=== PATIENT | female | born 1960 | race Caucasian/White ===

== ENCOUNTER 2017-04-03 05:38 | Observation (INO) | payer OTHER ==
[2017-04-03 06:38] LABS: #Eosinphils 0.1 thou/uL (0.0-0.7); #Lymphocytes 1.2 thou/uL (1.20-3.40); #Monocytes 0.6 thou/uL (0.11-0.59); #Neutrophils 4.3 thou/uL (1.40-6.50); %Basophils 0.3 % (0.0-1.0); %Eosinophils 1.8 % (0.0-10.0); %Lymphocytes 19.1 % (21.0-51.0); %Monocytes 8.9 % (0.0-10.0); %Neutrophils 69.9 % (42.0-75.0); Hemoglobin 12.1 g/dL (12.0-16.0); Mean Corpuscular HGB CONC 32.8 g/dL (32.0-36.0); Mean Corpuscular Hemoglobin 30.1 pg (27.0-31.0); Mean Corpuscular Volume 91.8 fl (81.0-99.0); Mean Platelet Volume 9.8 fL (7.4-10.4); Platelet Count 124 thou/uL (130-400); RBC Distribution Width 18.6 % (11.5-14.5); Red Blood Cell (RBC) Count 4.02 mill/uL (4.20-5.40); White Blood Cell (WBC) Count 6.2 thou/uL (4.8-10.8)
[2017-04-03] MEDS ORDERED: Midazolam HCl 2 mg/2 ml Vial ONE (06:41)
[2017-04-03] MEDS ORDERED: Fentanyl 100 MCG/2 ML VIAL ONE (06:41)
[2017-04-03 06:46] LABS: INR-International Normal Ratio 3.2; PTT 43.5 SEC (22.9-36.1); Prothrombin Time 33.8 SEC (12.0-14.7)
[2017-04-03 06:50] LABS: Anion Gap 14 mmol/L (10-20); BUN (Urea Nitrogen) 28 mg/dL (9.8-20.1); Calc. Creatinine Clearance 54 mL/min (70-130); Calcium 9.8 mg/dL (7.8-10.44); Carbon Dioxide 28 mmol/L (22-29); Cardiac Risk 2.9 (Less than 4.5); Chloride 98 mmol/L (98-107); Cholesterol 77 mg/dl (< 200 Desired); Estimated GFR-MDRD 45; Glucose 169 mg/dL (70-105); HDL Cholesterol 27 mg/dL (>60 Neg Risk); LDL Cholesterol, Calculated 34 mg/dL; Potassium 3.9 mmol/L (3.5-5.1); Sodium 136 mmol/L (136-145); Triglycerides 81 mg/dL (Less than 150)
[2017-04-03] MEDS ORDERED: CEFAZOLIN/Water 2 GM/20 ML SYRINGE ONE (07:07)
[2017-04-03] MEDS ORDERED: Iopamidol 370 76% 50 ML VIAL FS ONE (07:42)
[2017-04-03] MEDS ORDERED: Propofol 500 MG/50 ML VIAL ONE (07:45)
[2017-04-03] MEDS ORDERED: Lidocaine 1% (PF) 30 ML VIAL ONE (08:15)
[2017-04-03] MEDS ORDERED: Silver Sulfadiazine 1% Cream 50 GM JAR TOP PRN (10:18)
[2017-04-03] MEDS ORDERED: traMADol HCl 50 MG TAB PO PRN (10:18)
[2017-04-03] MEDS ORDERED: Temazepam 15 MG CAP PO PRN (10:18)
[2017-04-03] MEDS ORDERED: Nitroglycerin 0.4 MG TAB (25 Tab Bottle) SL PRN (10:18)
[2017-04-03] MEDS ORDERED: Bisacodyl 10 MG SUPP PR PRN (10:18)
[2017-04-03] MEDS ORDERED: Bisacodyl 5 MG TAB PO PRN (10:18)
[2017-04-03] MEDS ORDERED: Ondansetron PF 4 MG/2 ML Vial IVP PRN (10:18)
[2017-04-03] MEDS ORDERED: Acetaminophen 325 MG TAB PO PRN (10:18)
[2017-04-03] MEDS ORDERED: diphenhydrAMINE 25 MG CAP PO PRN (10:18)
[2017-04-03] MEDS ORDERED: Mag-Al 1200 mg/1200 mg/30 ML UDCUP PO PRN (10:18)
[2017-04-03] MEDS ORDERED: Dextrose 5% in Water 1,000 ML IV PRN (10:19)
[2017-04-03] MEDS ORDERED: Dextrose 50% Abboject 50 ML SYRINGE IVP PRN (10:19)
[2017-04-03 11:59] VITALS: BMI 29.5
[2017-04-03] MEDS ORDERED: PROPOFOL 200 MG/20 ML VIAL ONE (15:07)
[2017-04-03] MEDS ORDERED: ePHEDrine/0.9% NaCl/PF SYRINGE 50 mg/10 ml ONE (15:07)
[2017-04-03] MEDS ORDERED: PHENYLEPHRINE-NS 100 MCG/ML 10 ML SYRINGE ONE (15:07)
--- NOTE | 2017-04-03 17:03 | EKG ---
Test Reason : PREOP Blood Pressure : / mmHG Vent. Rate : 071 BPM Atrial Rate : 099 BPM P-R Int : 000 ms QRS Dur : 156 ms QT Int : 472 ms P-R-T Axes : 000 -04 132 degrees QTc Int : 512 ms Apparent atrial tachycardia with non conduction. Atrial rate 170, avg ventricular rate 80 Left bundle branch block Abnormal ECG No previous ECGs available Confirmed by DR. Sheron STEWART ([id number]) on 04/03/2017 5:03:12 PM Referred By: AKI Confirmed By:DR. Sheron STEWART
[2017-04-03] MEDS: metFORMIN 500 MG TAB PO SCH (17:17)
[2017-04-03] MEDS: Cephalexin 250 MG CAP PO SCH ×2 (17:18→23:07)
[2017-04-03] MEDS: Potassium Chloride 20 MEQ TAB PO SCH (17:18)
--- NOTE | 2017-04-04 08:28 | RAD ---
AP CHEST: Indication: 56-year-old female with history of pacemaker placement. Comparison: None. FINDINGS: There are sternotomy changes and aortic valve prosthesis placement. There is a multi-lead AICD projec ting over the left chest wall. The leads project in the expected position. There is moderate to sever e cardiomegaly with mild pulmonary vascular congestion. No seth airspace edema, pleural effusion, or pneumothorax evident. No acute osseous abnormality is evident. IMPRESSION: 1. AICD placement without evidence of complication. 2. Moderate cardiomegaly and mild pulmonary vascular congestion. 3. Post-surgical changes of prior valvular replacement. POS: [facility]
[2017-04-04 08:50] VITALS: BP 129/57; TEMP 97.4
[2017-04-04] MEDS ORDERED: Bumetanide 1 MG TAB PO SCH (09:00)
[2017-04-04] MEDS ORDERED: Insulin Detemir 100 UNITS/ML 16 UNITS in Pre-Filled Syringe 1 EACH SC SCH (09:00)
[2017-04-04] MEDS ORDERED: Losartan 25 MG TAB PO SCH (09:00)
[2017-04-04] MEDS: metFORMIN 500 MG TAB PO SCH (09:54)
[2017-04-04] MEDS: Cephalexin 250 MG CAP PO SCH (09:54)
[2017-04-04] MEDS: Potassium Chloride 20 MEQ TAB PO SCH (09:56)
--- NOTE | 2017-04-05 06:39 | DIS ---
DATE OF DISCHARGE: 04/04/2017 DISCHARGE DIAGNOSES: 1. Chronic congestive heart failure with cardiomyopathy. 2. Probable valvular replacement, on Coumadin. 3. Left bundle branch block. 4. Status post elective biventricular implantable cardioverter-defibrillator implantation on 04/03/2017 with a Medtronic device. HOSPITAL COURSE: The patient underwent the procedure on 04/03/2017, tolerated the procedure well, remained stable overnight subsequent day. Chest x-ray reveals no pneumothorax. The vital signs blood pressure is 129/57, heart rate 93, respiration 16, temperature 97.4 degrees Fahrenheit. Interrogation of device reveals adequately functioning Medtronic biventricular implantable cardioverter-defibrillator with lead impedance in atrium 418, RA 456 , RV 703. Capture thresholds are adequate, RV 0.375 volts at 0.4 milliseconds, sensing 2.6 mm in the right atrium and 18.4 millivolts in the right ventricle. CONCLUSION: Functioning biventricular implantable cardioverter-defibrillator one day post-implant without complications. PLAN: Home on antibiotics. Resume Coumadin and wound check in 2 weeks. MATHEW
[2017-04-05] MEDS ORDERED: Metoprolol Tartrate 100 MG TAB PO SCH (08:00)
[2017-04-05] MEDS ORDERED: Metolazone 2.5 MG TAB PO SCH (08:30)
== END 2017-04-04 10:22 | disposition home or self-care (01) ==
LOC: CCL 05:38 → 2SW 10:00
PROVIDERS: ADMIT Internal Medicine Cardiovascular Disease; ATTEND Internal Medicine Cardiovascular Disease
PROC: 0JH608Z Insertion of Defibrillator Generator into Chest Subcutaneous Tissue and Fascia, Open Approach (ICD-10-PCS; principal; 2017-04-04)
PROC: 02H63KZ Insertion of Defibrillator Lead into Right Atrium, Percutaneous Approach (ICD-10-PCS; 2017-04-04)
PROC: 02HK3KZ Insertion of Defibrillator Lead into Right Ventricle, Percutaneous Approach (ICD-10-PCS; 2017-04-04)
PROC: 4B02XTZ Measurement of Cardiac Defibrillator, External Approach (ICD-10-PCS; 2017-04-04)
DX: I11.0 Hypertensive heart disease with heart failure (principal); I50.22 Chronic systolic (congestive) heart failure; I48.1 Persistent atrial fibrillation; I44.7 Left bundle-branch block, unspecified; I42.8 Other cardiomyopathies; E11.42 Type 2 diabetes mellitus with diabetic polyneuropathy; K58.9 Irritable bowel syndrome, unspecified; Z79.01 Long term (current) use of anticoagulants; Z79.4 Long term (current) use of insulin; Z79.899 Other long term (current) drug therapy; Z95.4 Presence of other heart-valve replacement
CPT/HCPCS: 33225; 33249; 36005; 36415; 36416; 71045; 75820; 80048; 80061; 85025; 85610; 85730; 93005; 93010; 93641; 93798; 96374; C1777; C1882; C1898; C1900; G0378; J1815; J2001; J2250; J2405; J2704; J3010; J3490

== ENCOUNTER → 2017-05-01 | Day surgery (SDC) | payer OTHER ==
[2017-04-28 14:55] VITALS: BMI 28.9
[~2017-05-01] MED LIST: Diprivan 20 ML ONE; EPINEPHrine 1 MG/10 ML Abboject SYRINGE ONE; EPINEPHrine 1 MG/ML AMP ONE; PHENYLEPHRINE-NS 100 MCG/ML 10 ML SYRINGE ONE; Propofol 200 MG/20 ML VIAL ONE
--- NOTE | 2017-05-01 13:37 | OP ---
DATE OF PROCEDURE: 05/01/2017 PROCEDURE: ICD interrogation and intra cardioversion. PROCEDURE IN DETAIL: Ms. Chappell is a 56-year-old woman with prior history of mechanical mitral valve replacement, recent biventricular ICD implantation, persistent atrial flutter. She is here for a pl anned cardioversion. KIMBERLEE prior to procedure, demonstrated no intracardiac clots. INR today is 3.2, left appendage closure from likely surgical ligation appears to be without any leak, severe left atrial enlargement seen, t misael. The patient received propofol by Anesthesia specialist. After adequate sedation achieved the ICD was interrogated and found to be in adequate order. Then, attempts were made to overdrive pace terminat e the atrial flutter present. Atrial flutter cycle is 270 milliseconds, burst pacing to 160 mi lliseconds to convert the patient into atrial fibrillation from atrial flutter. Eventually this rhyt hm was shocked terminated with a 35 joule internal shock. CONCLUSION: Successful shock termination of atrial flutter/fibrillation. PLAN: 1. Continue anticoagulation. 2. Add atrial ATP. 3. Consider antiarrhythmic regimen if symptomatic atrial fibrillation recurs.
--- NOTE | 2017-05-01 18:31 | ECHO ---
TRANSESOPHAGEAL ECHOCARDIOGRAM: Date: 05/01/17 INDICATION FOR PROCEDURE: Ms. Chappell is a pleasant 56-year-old woman with history of mitral valve disease who underwent a mecha reyna mitral valve replacement in the past. She also received a biventricular ICD recently and she is here for attempted cardioversion. KIMBERLEE is performed to rule out intracardiac clot and to evaluate monique ral valve function. PROCEDURE DETAILS: The patient received propofol per anesthesia specialist. After adequate sedation achieved, a standar d transesophageal echocardiogram probe was passed into the esophagus without difficulty. Patient yvonne erated the procedure well. No complication noted. RESULTS: Left atrium is severely enlarged. Horizontal diameter is about 6.6 cm or slightly more. The appendage is not found, but signs of surgical ligation is visualized. No leak through the surgical ligation is seen. Mitral valve has a mechanical valve in place which appears to have adequate seating. Opening i s also adequate. Physiologic trivial MR is seen. The transmitral velocities are difficult to evaluate due to shadowing. The left atrium has heavy spontaneous echo contrast throughout it. The left ventri cular systolic function was difficult to visualize due to shadowing, but appears to be depressed, lik [place] to moderate degree. Right chambers slightly dilated. Right atrium is nondilated. Only mild tricus pid regurgitation seen. Aortic valve has 3 leaflets, sclerotic, but not stenotic, and not regurgitant . The Pulmonary valve is not well visualized. Pericardial space free of effusion. Visualized portion the ascending and descending aorta are without aneurysm, dissection, or atheroma. CONCLUSION: 1. No intracardiac clots. 2. Evidence of likely surgical closure of left appendage is seen, which appears to be without any re sidual flow. 3. Heavy spontaneous echo contrast in severely enlarged left atrium is visualized. 4. Adequate functioning and seated mechanical mitral valve. 5. Likely reduced LV function, difficult to estimate due to overshadowing of mechanical valve. PLAN: Proceed with the cardioversion.
--- NOTE | 2017-05-01 21:31 | EKG ---
Test Reason : PREOP Blood Pressure : / mmHG Vent. Rate : 076 BPM Atrial Rate : 077 BPM P-R Int : 000 ms QRS Dur : 166 ms QT Int : 498 ms P-R-T Axes : 100 -43 086 degrees QTc Int : 560 ms Electronic ventricular pacemaker When compared with ECG of 03-APR-2017 06:33, Previous ECG has undetermined rhythm, needs review Confirmed by Ce YUSUF ([id number]) on 05/01/2017 9:31:02 PM Referred By: [facility] Confirmed By:Ce YUSUF
== END ==
LOC: SDC 06:48
PROVIDERS: ATTEND Internal Medicine Cardiovascular Disease
PROC: 5A2204Z Restoration of Cardiac Rhythm, Single (ICD-10-PCS; principal; 2017-05-01)
DX: I48.1 Persistent atrial fibrillation (principal); I11.0 Hypertensive heart disease with heart failure; I50.22 Chronic systolic (congestive) heart failure; I42.8 Other cardiomyopathies; E11.42 Type 2 diabetes mellitus with diabetic polyneuropathy; K58.9 Irritable bowel syndrome, unspecified; Z79.01 Long term (current) use of anticoagulants; Z79.84 Long term (current) use of oral hypoglycemic drugs; Z79.899 Other long term (current) drug therapy; Z95.810 Presence of automatic (implantable) cardiac defibrillator
CPT/HCPCS: 92960; 93005; 93010; 93312; J0171; J2704

== ENCOUNTER 2021-10-04 07:24 | Outpatient (CLI) | payer OTHER ==
[2021-10-04 10:50] LABS: #Eosinphils 0.2 10x3/uL (0.0-0.5); #Monocytes 0.5 10x3/uL (0.0-1.1); #Neutrophils 2.8 10x3/uL (1.5-8.4); %Basophils 0.9 % (0.0-2.0); %Eosinophils 4.2 % (0.0-6.0); %Lymphocytes 22.6 % (18.0-47.0); %Neutrophils 61.1 % (40.0-75.0); Hemoglobin 13.6 g/dL (12.0-15.5); Mean Corpuscular HGB CONC 33.7 g/dL (32.0-36.0); Mean Corpuscular Volume 95.1 fl (81.6-98.3); Mean Platelet Volume 11.7 fl (7.4-10.4); Platelet Count 108 10x3/uL (150-450); RBC Distribution Width 13.7 % (11.5-14.5); Red Blood Cell (RBC) Count 4.25 10x6/uL (3.90-5.03); White Blood Cell (WBC) Count 4.6 10x3/uL (3.5-10.5)
[2021-10-04 11:03] LABS: ALT (SGPT) 20 U/L (8-55); AST (SGOT) 30 U/L (5-34); Albumin 4.1 g/dL (3.5-5.0); Alkaline Phosphatase 174 U/L (40-110); Anion Gap 13 mmol/L (10-20); BUN (Urea Nitrogen) 46 mg/dL (9.8-20.1); Bilirubin, Total 1.2 mg/dL (0.2-1.2); Calc. Creatinine Clearance 0 mL/min (70-130); Carbon Dioxide 29 mmol/L (22-29); Chloride 103 mmol/L (98-107); Estimated GFR 41; Globulin 3.1 g/dL (2.4-3.5); Glucose 126 mg/dL (70-105); PTT 30.7 sec (22.0-33.0); Potassium 4.2 mmol/L (3.5-5.1); Protein, Total 7.2 g/dL (6.0-8.3); Sodium 141 mmol/L (136-145)
== END 2021-10-04 07:25 | disposition home or self-care (01) ==
LOC: LABBT 07:24
PROVIDERS: ATTEND Internal Medicine Cardiovascular Disease
DX: Z01.812 Encounter for preprocedural laboratory examination (principal); Z20.822 Contact with and (suspected) exposure to COVID-19
CPT/HCPCS: 80053; 85025; 85610; 85730; 87811

== ENCOUNTER 2021-10-05 05:39 | Inpatient (IN) | payer OTHER ==
[2021-10-05 09:22] LABS: Anion Gap 16 mmol/L (10-20); BUN (Urea Nitrogen) 46 mg/dL (9.8-20.1); Calc. Creatinine Clearance 52 mL/min (70-130); Calcium 8.7 mg/dL (7.8-10.44); Carbon Dioxide 25 mmol/L (22-29); Chloride 102 mmol/L (98-107); Estimated GFR 43; Glucose 94 mg/dL (70-105); Potassium 4.7 mmol/L (3.5-5.1); Sodium 138 mmol/L (136-145)
[2021-10-05 10:12] LABS: INR-International Normal Ratio 1.9; PTT 35.5 sec (22.9-36.1); Prothrombin Time 22.4 sec (12.0-14.7)
[2021-10-05] MEDS ORDERED: Fentanyl 100 MCG/2 ML VIAL ONE (10:31)
[2021-10-05] MEDS ORDERED: Midazolam HCl 2 mg/2 ml Vial ONE (10:32)
[2021-10-05] MEDS ORDERED: Heparin 10,000 UNITS/ 10 ML VIAL ONE (10:32)
[2021-10-05] MEDS ORDERED: Verapamil 5 MG/2 ML VIAL ONE (10:40)
[2021-10-05] MEDS ORDERED: Nitroglycerin 100MG/250ML BOT 250 ML ONE (10:40)
[2021-10-05] MEDS ORDERED: Iopamidol 370 76% 100 ML VIAL ONE (13:49)
[2021-10-05 16:31] VITALS: BMI 35.9
[2021-10-05] MEDS ORDERED: Sodium Chloride 0.9% 1,000 ML IV SCH (17:15)
[2021-10-05] MEDS ORDERED: Acetaminophen/Codeine 30-300mg Tablet PO PRN ×2 (17:15)
[2021-10-05] MEDS ORDERED: Nitroglycerin 0.4 MG TAB (25 Tab Bottle) SL PRN (17:15)
[2021-10-05] MEDS ORDERED: traMADol HCl 50 MG TAB PO PRN (17:15)
[2021-10-05] MEDS: Warfarin Sodium 2.5 MG TAB PO SCH (17:38)
[2021-10-05] MEDS ORDERED: Furosemide 20 MG TAB PO SCH (18:45)
[2021-10-05] MEDS ORDERED: Furosemide 20 MG/2 ML VIAL SLOW IVP SCH (18:45)
[2021-10-05] MEDS ORDERED: Heparin 25,000 units/D5W 500 ML IV SCH (18:45)
[2021-10-05] MEDS ORDERED: Heparin 10,000 UNITS/ 10 ML VIAL SLOW IVP SCH (18:45)
[2021-10-05 18:54] LABS: Hemoglobin 12.8 g/dL (12.0-16.0); Platelet Count 84 thou/uL (130-400)
[2021-10-05] MEDS: Metoprolol Tartrate 100 MG TAB PO SCH (19:57)
[2021-10-06 02:53] LABS: INR-International Normal Ratio 2.9; Prothrombin Time 30.9 sec (12.0-14.7)
[2021-10-06 03:13] LABS: PTT Greater than 250.0 sec (22.9-36.1)
[2021-10-06 06:18] LABS: PTT 132.7 sec (22.9-36.1)
[2021-10-06] MEDS ORDERED: Metolazone 2.5 MG TAB PO SCH (08:30)
[2021-10-06] MEDS ORDERED: VIT C PO SCH (09:00)
[2021-10-06] MEDS ORDERED: NPH, Human Insulin Isophane 300 UNIT/3 ML VIAL SC SCH (09:00)
[2021-10-06] MEDS ORDERED: Losartan 25 MG TAB PO SCH (09:00)
[2021-10-06] MEDS ORDERED: Potassium Chloride 20 MEQ TAB PO SCH (09:00)
[2021-10-06] MEDS ORDERED: Ferrous Sulfate 325 MG TAB PO SCH (09:00)
[2021-10-06] MEDS ORDERED: Cholecalciferol 1,000 UNITS (25 MCG) TAB PO SCH (09:00)
[2021-10-06] MEDS ORDERED: Bumetanide 1 MG TAB PO SCH (09:00)
[2021-10-06] MEDS ORDERED: [UNRECOGNIZED DRUG - OTHER] PO SCH (09:00)
[2021-10-06] MEDS: Metoprolol Tartrate 100 MG TAB PO SCH ×2 (09:01→19:42)
[2021-10-06 10:55] LABS: SARS-CoV-2 NAA Rapid Test Not Detected (NotDetected)
[2021-10-06 12:19] LABS: Anion Gap 17 mmol/L (10-20); BUN (Urea Nitrogen) 39 mg/dL (9.8-20.1); Calc. Creatinine Clearance 59 mL/min (70-130); Carbon Dioxide 18 mmol/L (22-29); Chloride 104 mmol/L (98-107); Estimated GFR 48; Glucose 242 mg/dL (70-105); Potassium 5.1 mmol/L (3.5-5.1); Sodium 134 mmol/L (136-145)
[2021-10-06] MEDS: Warfarin Sodium 2.5 MG TAB PO SCH (17:04)
[2021-10-06 19:23] VITALS: BP 120/56; TEMP 98.4
== END 2021-10-06 21:04 | disposition short-term general hospital (02) | DRG 287 ==
LOC: SDC 05:39 → 2SW 16:18 → OBSVTOIN 10-06 10:22
PROVIDERS: ADMIT Internal Medicine Cardiovascular Disease; ATTEND Internal Medicine Cardiovascular Disease
PROC: 4A023N6 Measurement of Cardiac Sampling and Pressure, Right Heart, Percutaneous Approach (ICD-10-PCS; principal; 2021-10-05)
PROC: B2111ZZ Fluoroscopy of Multiple Coronary Arteries using Low Osmolar Contrast (ICD-10-PCS; 2021-10-05)
PROC: B2151ZZ Fluoroscopy of Left Heart using Low Osmolar Contrast (ICD-10-PCS; 2021-10-05)
DX: I35.0 Nonrheumatic aortic (valve) stenosis (principal); I42.9 Cardiomyopathy, unspecified; I50.22 Chronic systolic (congestive) heart failure; I48.19 Other persistent atrial fibrillation; I27.20 Pulmonary hypertension, unspecified; E11.9 Type 2 diabetes mellitus without complications; E78.5 Hyperlipidemia, unspecified; D64.9 Anemia, unspecified; I44.7 Left bundle-branch block, unspecified; I11.0 Hypertensive heart disease with heart failure; Z98.890 Other specified postprocedural states; Z95.810 Presence of automatic (implantable) cardiac defibrillator; Z79.899 Other long term (current) drug therapy; Z79.01 Long term (current) use of anticoagulants; Z95.2 Presence of prosthetic heart valve; Z79.84 Long term (current) use of oral hypoglycemic drugs; Z20.822 Contact with and (suspected) exposure to COVID-19
CPT/HCPCS: 36415; 36416; 80048; 85014; 85018; 85049; 85610; 85730; 93460; 96365; 96366; 96375; 96376; C1751; C1769; C1894; G0378; J1644; J1815; J1940; J2250; J3010; J7050; Q9967; U0002

== ENCOUNTER 2021-11-12 18:08 | Inpatient (IN) | payer OTHER, SELFPAY ==
[2021-11-12] MEDS ORDERED: Morphine 2 MG/ML VIAL SLOW IVP PRN (21:51)
[2021-11-12] MEDS ORDERED: Morphine 4 MG/ML VIAL SLOW IVP PRN (22:15)
[2021-11-12] MEDS ORDERED: Dextrose 5% in Water 1,000 ML IV PRN (22:16)
[2021-11-12] MEDS ORDERED: Dextrose 50% Abboject 50 ML SYRINGE SLOW IVP PRN (22:16)
[2021-11-12 23:10] LABS: #Eosinphils 0.2 thou/uL (0.0-0.7); #Lymphocytes 0.9 thou/uL (1.20-3.40); #Monocytes 0.7 thou/uL (0.11-0.59); #Neutrophils 4.9 thou/uL (1.40-6.50); %Basophils 0.1 % (0.0-1.0); %Lymphocytes 13.8 % (21.0-51.0); %Monocytes 10.9 % (0.0-10.0); %Neutrophils 72.2 % (42.0-75.0); Hemoglobin 9.4 g/dL (12.0-16.0); Mean Corpuscular HGB CONC 34.4 g/dL (32.0-36.0); Mean Corpuscular Hemoglobin 33.3 pg (27.0-31.0); Mean Corpuscular Volume 96.8 fL (78.0-98.0); Mean Platelet Volume 8.3 fL (7.4-10.4); Platelet Count 136 thou/uL (130-400); RBC Distribution Width 15.4 % (11.5-14.5); Red Blood Cell (RBC) Count 2.83 mill/uL (4.20-5.40); White Blood Cell (WBC) Count 6.8 thou/uL (4.8-10.8)
[2021-11-12 23:19] VITALS: BMI 28.0
[2021-11-12 23:25] LABS: Anion Gap 16 mmol/L (10-20); BUN (Urea Nitrogen) 77 mg/dL (9.8-20.1); Calc. Creatinine Clearance 21 mL/min (70-130); Calcium 9.1 mg/dL (7.8-10.44); Carbon Dioxide 25 mmol/L (22-29); Chloride 89 mmol/L (98-107); Estimated GFR 18; Glucose 308 mg/dL (70-105); Potassium 5.4 mmol/L (3.5-5.1); Sodium 125 mmol/L (136-145)
[2021-11-12 23:29] LABS: INR-International Normal Ratio 1.4; Prothrombin Time 17.1 sec (12.0-14.7)
[2021-11-12 23:30] LABS: PTT 33.2 sec (22.9-36.1)
[2021-11-13] MEDS: HumaLOG 300 UNITS/3 ML VIAL SC PRN ×4 (06:20→21:10)
[2021-11-13 07:32] LABS: Anion Gap 15 mmol/L (10-20); BUN (Urea Nitrogen) 75 mg/dL (9.8-20.1); Calc. Creatinine Clearance 22 mL/min (70-130); Calcium 9.1 mg/dL (7.8-10.44); Carbon Dioxide 26 mmol/L (22-29); Chloride 90 mmol/L (98-107); Estimated GFR 19; Glucose 316 mg/dL (70-105); Potassium 5.1 mmol/L (3.5-5.1); Sodium 126 mmol/L (136-145)
[2021-11-13 07:33] LABS: #Eosinphils 0.2 thou/uL (0.0-0.7); #Lymphocytes 0.9 thou/uL (1.20-3.40); #Monocytes 0.9 thou/uL (0.11-0.59); #Neutrophils 4.3 thou/uL (1.40-6.50); %Basophils 0.1 % (0.0-1.0); %Eosinophils 3.2 % (0.0-10.0); %Lymphocytes 14.8 % (21.0-51.0); %Monocytes 13.7 % (0.0-10.0); %Neutrophils 68.2 % (42.0-75.0); Hemoglobin 8.9 g/dL (12.0-16.0); Mean Corpuscular HGB CONC 33.8 g/dL (32.0-36.0); Mean Corpuscular Hemoglobin 32.7 pg (27.0-31.0); Mean Corpuscular Volume 96.8 fL (78.0-98.0); Mean Platelet Volume 8.4 fL (7.4-10.4); Platelet Count 124 thou/uL (130-400); RBC Distribution Width 15.8 % (11.5-14.5); Red Blood Cell (RBC) Count 2.71 mill/uL (4.20-5.40); White Blood Cell (WBC) Count 6.2 thou/uL (4.8-10.8)
[2021-11-13] MEDS ORDERED: Insulin NPH Human Isophane 100 UNIT/ML (10 ML VIAL) SQ SCH ×2 (08:15→09:00)
[2021-11-13 08:24] LABS: Phosphorus 3.7 mg/dL (2.3-4.7)
[2021-11-13] MEDS: Metoprolol Tartrate 100 MG TAB PO SCH ×2 (08:53→21:06)
[2021-11-13] MEDS: Amiodarone 200 MG TAB PO SCH ×2 (09:48→21:09)
[2021-11-13 11:10] LABS: INR-International Normal Ratio 1.3; Prothrombin Time 16.8 sec (12.0-14.7)
[2021-11-13 11:11] LABS: PTT 34.8 sec (22.9-36.1)
[2021-11-13 11:21] LABS: Iron 80 ug/dL (50-170); Iron Binding Capacity, Total 351 mcg/dL (265-497)
[2021-11-13] MEDS: Sodium Chloride 0.9% 1,000 ML IV SCH (12:22)
[2021-11-13 16:45] LABS: Anion Gap 17 mmol/L (10-20); BUN (Urea Nitrogen) 67 mg/dL (9.8-20.1); Calc. Creatinine Clearance 25 mL/min (70-130); Calcium 9.2 mg/dL (7.8-10.44); Carbon Dioxide 25 mmol/L (22-29); Chloride 93 mmol/L (98-107); Estimated GFR 22; Glucose 254 mg/dL (70-105); Potassium 4.7 mmol/L (3.5-5.1); Sodium 130 mmol/L (136-145)
[2021-11-13] MEDS: Insulin NPH Human Isophane 100 UNIT/ML (10 ML VIAL) SQ SCH (16:55)
[2021-11-13] MEDS ORDERED: Warfarin Sodium 5 MG TAB PO SCH (17:00)
[2021-11-13] MEDS ORDERED: Warfarin Sodium 2.5 MG TAB PO SCH (17:00)
[2021-11-13] MEDS: Acetaminophen 325 MG TAB PO PRN (21:16)
[2021-11-13 23:15] LABS: Bacteria/HPF None Seen HPF (None Seen); Bilirubin Negative (Negative); Blood, Urine Negative (Negative); Clarity Clear (Clear); Glucose, Urine (Dipstick) Normal (Negative); Ketone, Urine Negative (Negative); Leukocyte 75 Leu/uL (Negative); Nitrite Negative (Negative); Protein, Urine (Dipstick) Negative (Neg-Trace); RBC/HPF 0-3 HPF (0-3); Specific Gravity, Urine 1.012 (1.002-1.036); WBC/HPF 0-3 HPF (0-3); pH, Urine 5.5 (5.0-9.0)
[2021-11-14 08:57] LABS: #Eosinphils 0.2 thou/uL (0.0-0.7); #Lymphocytes 0.8 thou/uL (1.20-3.40); #Monocytes 0.7 thou/uL (0.11-0.59); #Neutrophils 3.7 thou/uL (1.40-6.50); %Basophils 0.1 % (0.0-1.0); %Eosinophils 4.1 % (0.0-10.0); %Lymphocytes 14.9 % (21.0-51.0); %Monocytes 13.1 % (0.0-10.0); %Neutrophils 67.7 % (42.0-75.0); Hemoglobin 8.6 g/dL (12.0-16.0); Mean Corpuscular HGB CONC 33.7 g/dL (32.0-36.0); Mean Corpuscular Hemoglobin 32.9 pg (27.0-31.0); Mean Corpuscular Volume 97.7 fL (78.0-98.0); Platelet Count 137 thou/uL (130-400); RBC Distribution Width 15.7 % (11.5-14.5); Red Blood Cell (RBC) Count 2.62 mill/uL (4.20-5.40); White Blood Cell (WBC) Count 5.5 thou/uL (4.8-10.8)
[2021-11-14 09:06] LABS: INR-International Normal Ratio 1.5
[2021-11-14 09:09] LABS: Anion Gap 15 mmol/L (10-20); BUN (Urea Nitrogen) 62 mg/dL (9.8-20.1); Calc. Creatinine Clearance 30 mL/min (70-130); Calcium 8.8 mg/dL (7.8-10.44); Carbon Dioxide 23 mmol/L (22-29); Chloride 99 mmol/L (98-107); Estimated GFR 25; Glucose 248 mg/dL (70-105); Potassium 4.5 mmol/L (3.5-5.1); Sodium 132 mmol/L (136-145)
[2021-11-14] MEDS: Insulin NPH Human Isophane 100 UNIT/ML (10 ML VIAL) SQ SCH ×2 (09:10→17:10)
[2021-11-14] MEDS: Amiodarone 200 MG TAB PO SCH ×2 (09:12→21:01)
[2021-11-14] MEDS ORDERED: HYDROcodone/Acetaminophen 5/325 mg Tablet PO PRN (09:25)
[2021-11-14] MEDS ORDERED: HYDROcodone/Acetaminophen 10/325 mg Tablet PO PRN (09:25)
[2021-11-14] MEDS ORDERED: Morphine 4 MG/ML VIAL SLOW IVP PRN (09:25)
[2021-11-14] MEDS: Metoprolol Tartrate 100 MG TAB PO SCH (09:47)
[2021-11-14] MEDS ORDERED: Insulin NPH Human Isophane 100 UNIT/ML (10 ML VIAL) SC SCH (10:00)
[2021-11-14] MEDS: Sodium Chloride 0.9% 1,000 ML IV SCH (10:19)
[2021-11-14] MEDS: HumaLOG 300 UNITS/3 ML VIAL SC PRN ×3 (13:35→21:03)
[2021-11-14] MEDS ORDERED: Warfarin Sodium 2.5 MG TAB PO SCH (17:00)
[2021-11-14] MEDS ORDERED: Warfarin Sodium 5 MG TAB PO SCH (17:00)
[2021-11-14] MEDS: Epoetin (ESRD) 10,000 UNITS/ML VIAL IVP SCH (17:15)
[2021-11-14] MEDS: Acetaminophen 325 MG TAB PO PRN (21:01)
[2021-11-14 21:25] LABS: Hemoglobin 8.8 g/dL (12.0-16.0); Platelet Count 134 thou/uL (130-400)
[2021-11-15] MEDS ORDERED: Guaifenesin DM 100-10/5 ML UDCUP PO PRN (02:10)
[2021-11-15] MEDS: Sodium Chloride 0.9% 1,000 ML IV SCH ×2 (02:31→20:42)
[2021-11-15 06:20] LABS: #Eosinphils 0.3 thou/uL (0.0-0.7); #Lymphocytes 0.9 thou/uL (1.20-3.40); #Monocytes 0.7 thou/uL (0.11-0.59); #Neutrophils 4.2 thou/uL (1.40-6.50); %Basophils 0.2 % (0.0-1.0); %Eosinophils 4.8 % (0.0-10.0); %Lymphocytes 14.8 % (21.0-51.0); %Neutrophils 69.2 % (42.0-75.0); Hemoglobin 8.6 g/dL (12.0-16.0); Mean Corpuscular HGB CONC 34.2 g/dL (32.0-36.0); Mean Corpuscular Hemoglobin 33.8 pg (27.0-31.0); Mean Corpuscular Volume 99.1 fL (78.0-98.0); Mean Platelet Volume 7.5 fL (7.4-10.4); Platelet Count 127 thou/uL (130-400); RBC Distribution Width 15.7 % (11.5-14.5); Red Blood Cell (RBC) Count 2.55 mill/uL (4.20-5.40)
[2021-11-15 06:43] LABS: INR-International Normal Ratio 2.5; Prothrombin Time 27.9 sec (12.0-14.7)
[2021-11-15 06:44] LABS: PTT 46.7 sec (22.9-36.1)
[2021-11-15 06:50] LABS: Anion Gap 12 mmol/L (10-20); BUN (Urea Nitrogen) 42 mg/dL (9.8-20.1); Calc. Creatinine Clearance 40 mL/min (70-130); Calcium 8.8 mg/dL (7.8-10.44); Carbon Dioxide 24 mmol/L (22-29); Chloride 105 mmol/L (98-107); Estimated GFR 36; Glucose 145 mg/dL (70-105); Potassium 4.3 mmol/L (3.5-5.1); Sodium 137 mmol/L (136-145)
[2021-11-15] MEDS ORDERED: Ondansetron PF 4 MG/2 ML Vial IVP PRN (08:55)
[2021-11-15] MEDS ORDERED: diphenhydrAMINE 25 MG CAP PO PRN (08:55)
[2021-11-15] MEDS ORDERED: Calcium Carbonate 500 MG ChewTAB PO PRN (08:55)
[2021-11-15] MEDS ORDERED: Ondansetron ODT 4 MG TAB PO PRN (08:55)
[2021-11-15] MEDS ORDERED: Benzonatate 100 MG CAP PO PRN (08:55)
[2021-11-15] MEDS ORDERED: hydrALAZINE 20 MG/ML VIAL SLOW IVP PRN (08:55)
[2021-11-15] MEDS ORDERED: Sodium Chloride 0.65% Nasal 44 ML BOT EA NARE PRN (08:55)
[2021-11-15] MEDS ORDERED: Labetalol HCl 100 MG/20 ML VIAL SLOW IVP PRN (08:55)
[2021-11-15] MEDS ORDERED: Moisturizing Cream (Eucerin) 113 GM JAR TOP PRN (08:55)
[2021-11-15] MEDS ORDERED: Loperamide HCl 2 MG CAP PO PRN ×2 (08:55)
[2021-11-15] MEDS ORDERED: Artificial Tear Sol 15 ML BOT EA EYE PRN (08:55)
[2021-11-15] MEDS ORDERED: Bisacodyl 10 MG SUPP PR PRN (08:55)
[2021-11-15] MEDS: Insulin NPH Human Isophane 100 UNIT/ML (10 ML VIAL) SQ SCH ×2 (10:04→17:48)
[2021-11-15] MEDS: Amiodarone 200 MG TAB PO SCH ×2 (10:04→20:43)
[2021-11-15] MEDS: Polyethylene Glycol 3350 17 GM Packet PO SCH (10:05)
[2021-11-15] MEDS: HumaLOG 300 UNITS/3 ML VIAL SC PRN ×2 (13:32→23:45)
[2021-11-15] MEDS: Acetaminophen 500 MG TAB PO PRN (13:37)
[2021-11-15] MEDS ORDERED: Warfarin Sodium 2.5 MG TAB PO SCH (17:00)
[2021-11-15] MEDS ORDERED: Warfarin Sodium 1.25 MG HALF.TAB PO SCH (17:00)
[2021-11-16 06:45] LABS: #Eosinphils 0.3 thou/uL (0.0-0.7); #Monocytes 0.7 thou/uL (0.11-0.59); #Neutrophils 4.7 thou/uL (1.40-6.50); %Basophils 0.4 % (0.0-1.0); %Eosinophils 4.5 % (0.0-10.0); %Lymphocytes 14.5 % (21.0-51.0); %Monocytes 10.8 % (0.0-10.0); %Neutrophils 69.8 % (42.0-75.0); Hemoglobin 8.4 g/dL (12.0-16.0); Mean Corpuscular Hemoglobin 32.9 pg (27.0-31.0); Mean Corpuscular Volume 99.9 fL (78.0-98.0); Mean Platelet Volume 7.8 fL (7.4-10.4); Platelet Count 134 thou/uL (130-400); RBC Distribution Width 16.1 % (11.5-14.5); Red Blood Cell (RBC) Count 2.54 mill/uL (4.20-5.40); White Blood Cell (WBC) Count 6.8 thou/uL (4.8-10.8)
[2021-11-16 06:53] LABS: PTT 51.7 sec (22.9-36.1); Prothrombin Time 43.6 sec (12.0-14.7)
[2021-11-16 06:55] LABS: INR-International Normal Ratio 4.5
[2021-11-16 07:02] LABS: Anion Gap 13 mmol/L (10-20); BUN (Urea Nitrogen) 25 mg/dL (9.8-20.1); Calc. Creatinine Clearance 51 mL/min (70-130); Calcium 8.9 mg/dL (7.8-10.44); Carbon Dioxide 22 mmol/L (22-29); Chloride 106 mmol/L (98-107); Estimated GFR 48; Glucose 140 mg/dL (70-105); Potassium 4.2 mmol/L (3.5-5.1); Sodium 137 mmol/L (136-145)
[2021-11-16] MEDS: Amiodarone 200 MG TAB PO SCH ×2 (09:04→20:32)
[2021-11-16] MEDS: Insulin NPH Human Isophane 100 UNIT/ML (10 ML VIAL) SQ SCH ×2 (09:04→15:51)
[2021-11-16] MEDS: Polyethylene Glycol 3350 17 GM Packet PO SCH (09:05)
[2021-11-16] MEDS ORDERED: Iopamidol 370 76% 50 ML VIAL FS ONE (13:35)
[2021-11-16] MEDS: Sodium Chloride 0.9% 1,000 ML IV SCH (20:32)
[2021-11-16] MEDS: HumaLOG 300 UNITS/3 ML VIAL SC PRN (20:33)
[2021-11-17 06:34] LABS: #Eosinphils 0.2 thou/uL (0.0-0.7); #Lymphocytes 0.8 thou/uL (1.20-3.40); #Monocytes 0.5 thou/uL (0.11-0.59); #Neutrophils 3.6 thou/uL (1.40-6.50); %Basophils 0.3 % (0.0-1.0); %Eosinophils 4.1 % (0.0-10.0); %Lymphocytes 16.2 % (21.0-51.0); %Monocytes 9.9 % (0.0-10.0); %Neutrophils 69.4 % (42.0-75.0); Mean Corpuscular HGB CONC 33.5 g/dL (32.0-36.0); Mean Corpuscular Hemoglobin 33.3 pg (27.0-31.0); Mean Corpuscular Volume 99.3 fL (78.0-98.0); Mean Platelet Volume 7.9 fL (7.4-10.4); Platelet Count 129 thou/uL (130-400); RBC Distribution Width 16.1 % (11.5-14.5); Red Blood Cell (RBC) Count 2.41 mill/uL (4.20-5.40); White Blood Cell (WBC) Count 5.2 thou/uL (4.8-10.8)
[2021-11-17 06:45] LABS: Prothrombin Time 45.2 sec (12.0-14.7)
[2021-11-17 06:53] LABS: Anion Gap 12 mmol/L (10-20); BUN (Urea Nitrogen) 20 mg/dL (9.8-20.1); Calc. Creatinine Clearance 47 mL/min (70-130); Calcium 8.7 mg/dL (7.8-10.44); Carbon Dioxide 22 mmol/L (22-29); Chloride 106 mmol/L (98-107); Estimated GFR 43; Glucose 93 mg/dL (70-105); Potassium 4.2 mmol/L (3.5-5.1); Sodium 136 mmol/L (136-145)
[2021-11-17 07:01] LABS: INR-International Normal Ratio 4.7
[2021-11-17] MEDS: Insulin NPH Human Isophane 100 UNIT/ML (10 ML VIAL) SQ SCH ×2 (09:15→16:39)
[2021-11-17] MEDS: Amiodarone 200 MG TAB PO SCH ×2 (09:15→20:44)
[2021-11-17] MEDS: Polyethylene Glycol 3350 17 GM Packet PO SCH (09:15)
[2021-11-17] MEDS: Sodium Chloride 0.9% 1,000 ML IV SCH ×2 (15:45→16:41)
[2021-11-17] MEDS ORDERED: Warfarin Sodium 1.25 MG HALF.TAB PO SCH (17:00)
[2021-11-17] MEDS: HumaLOG 300 UNITS/3 ML VIAL SC PRN (20:46)
[2021-11-18 06:54] LABS: INR-International Normal Ratio 3.5; Prothrombin Time 35.8 sec (12.0-14.7)
[2021-11-18 06:55] LABS: PTT 57.5 sec (22.9-36.1)
[2021-11-18 07:21] LABS: ALT (SGPT) 11 U/L (8-55); AST (SGOT) 19 U/L (5-34); Albumin 3.5 g/dL (3.5-5.0); Alkaline Phosphatase 133 U/L (40-110); Anion Gap 10 mmol/L (10-20); BUN (Urea Nitrogen) 20 mg/dL (9.8-20.1); Bilirubin, Total 2.5 mg/dL (0.2-1.2); Calc. Creatinine Clearance 50 mL/min (70-130); Calcium 8.5 mg/dL (7.8-10.44); Carbon Dioxide 23 mmol/L (22-29); Chloride 107 mmol/L (98-107); Estimated GFR 46; Globulin 2.9 g/dL (2.4-3.5); Glucose 159 mg/dL (70-105); Magnesium 2.1 mg/dL (1.6-2.6); Phosphorus 3.3 mg/dL (2.3-4.7); Potassium 4.3 mmol/L (3.5-5.1); Protein, Total 6.4 g/dL (6.0-8.3); Sodium 136 mmol/L (136-145)
[2021-11-18 07:35] LABS: #Eosinphils 0.2 thou/uL (0.0-0.7); #Lymphocytes 0.6 thou/uL (1.20-3.40); #Monocytes 0.4 thou/uL (0.11-0.59); #Neutrophils 3.1 thou/uL (1.40-6.50); %Basophils 0.2 % (0.0-1.0); %Eosinophils 4.5 % (0.0-10.0); %Lymphocytes 14.2 % (21.0-51.0); %Monocytes 9.5 % (0.0-10.0); %Neutrophils 71.6 % (42.0-75.0); Hemoglobin 7.8 g/dL (12.0-16.0); Hypochromia SLIGHT = 6-15 cells (100X) (0-5/hpf); MDiff Complete? YES; Mean Corpuscular HGB CONC 31.8 g/dL (32.0-36.0); Mean Corpuscular Hemoglobin 32.2 pg (27.0-31.0); Mean Platelet Volume 7.5 fL (7.4-10.4); Platelet Count 108 thou/uL (130-400); Platelet Morphology Comment Appears Decreased; Polychromasia SLIGHT = 2-3 cells (100X) (0-2/hpf); RBC Distribution Width 16.6 % (11.5-14.5); Red Blood Cell (RBC) Count 2.41 mill/uL (4.20-5.40); White Blood Cell (WBC) Count 4.3 thou/uL (4.8-10.8)
[2021-11-18] MEDS: Polyethylene Glycol 3350 17 GM Packet PO SCH (09:02)
[2021-11-18] MEDS: Amiodarone 200 MG TAB PO SCH ×2 (09:02→20:32)
[2021-11-18] MEDS: Insulin NPH Human Isophane 100 UNIT/ML (10 ML VIAL) SQ SCH ×2 (09:03→17:54)
[2021-11-18 12:29] LABS: Bacteria/HPF 2+ HPF (None Seen); Bilirubin Negative (Negative); Blood, Urine Trace (Negative); Clarity Turbid (Clear); Glucose, Urine (Dipstick) Normal (Negative); Ketone, Urine Negative (Negative); Leukocyte 500 Leu/uL (Negative); Nitrite Negative (Negative); Protein, Urine (Dipstick) 20 mg/dL (Neg-Trace); Specific Gravity, Urine 1.018 (1.002-1.036); Squamous Epithelial 21-50 HPF (0-3); Urobilinogen Greater than 12 mg/dL (Less than 2); WBC/HPF 21-50 HPF (0-3); pH, Urine 5.5 (5.0-9.0)
[2021-11-18] MEDS: Sodium Chloride 0.9% 1,000 ML IV SCH (15:21)
[2021-11-18] MEDS: cefTRIAXone\\ROCEPHIN 1 GM in Sodium Chloride 0.9% 100 ML IVPB SCH (15:21)
[2021-11-18] MEDS: HumaLOG 300 UNITS/3 ML VIAL SC PRN (20:32)
[2021-11-19 06:48] LABS: ALT (SGPT) 10 U/L (8-55); AST (SGOT) 20 U/L (5-34); Albumin 3.4 g/dL (3.5-5.0); Alkaline Phosphatase 120 U/L (40-110); Anion Gap 11 mmol/L (10-20); BUN (Urea Nitrogen) 17 mg/dL (9.8-20.1); Bilirubin, Total 2.2 mg/dL (0.2-1.2); Calc. Creatinine Clearance 54 mL/min (70-130); Calcium 8.6 mg/dL (7.8-10.44); Carbon Dioxide 22 mmol/L (22-29); Chloride 107 mmol/L (98-107); Estimated GFR 51; Globulin 3.1 g/dL (2.4-3.5); Glucose 84 mg/dL (70-105); Magnesium 2.1 mg/dL (1.6-2.6); Phosphorus 3.1 mg/dL (2.3-4.7); Potassium 4.1 mmol/L (3.5-5.1); Protein, Total 6.5 g/dL (6.0-8.3); Sodium 136 mmol/L (136-145)
[2021-11-19 06:53] LABS: INR-International Normal Ratio 3.2; Prothrombin Time 33.6 sec (12.0-14.7)
[2021-11-19 06:54] LABS: PTT 53.4 sec (22.9-36.1)
[2021-11-19 06:57] LABS: #Eosinphils 0.2 thou/uL (0.0-0.7); #Lymphocytes 0.7 thou/uL (1.20-3.40); #Monocytes 0.4 thou/uL (0.11-0.59); #Neutrophils 3.2 thou/uL (1.40-6.50); %Basophils 0.1 % (0.0-1.0); %Eosinophils 3.5 % (0.0-10.0); %Lymphocytes 14.9 % (21.0-51.0); %Monocytes 9.8 % (0.0-10.0); %Neutrophils 71.8 % (42.0-75.0); Hemoglobin 7.8 g/dL (12.0-16.0); Mean Corpuscular HGB CONC 32.9 g/dL (32.0-36.0); Mean Corpuscular Hemoglobin 33.1 pg (27.0-31.0); Mean Platelet Volume 8.1 fL (7.4-10.4); Platelet Count 105 thou/uL (130-400); RBC Distribution Width 16.4 % (11.5-14.5); Red Blood Cell (RBC) Count 2.36 mill/uL (4.20-5.40); White Blood Cell (WBC) Count 4.5 thou/uL (4.8-10.8)
[2021-11-19] MEDS: Polyethylene Glycol 3350 17 GM Packet PO SCH (08:25)
[2021-11-19] MEDS: Amiodarone 200 MG TAB PO SCH ×2 (08:25→20:46)
[2021-11-19] MEDS: Insulin NPH Human Isophane 100 UNIT/ML (10 ML VIAL) SQ SCH ×2 (08:25→17:17)
[2021-11-19] MEDS: Sodium Chloride 0.9% 1,000 ML IV SCH (08:29)
[2021-11-19] MEDS: cefTRIAXone\\ROCEPHIN 1 GM in Sodium Chloride 0.9% 100 ML IVPB SCH (14:53)
[2021-11-19] MEDS: Acetaminophen 500 MG TAB PO PRN (20:44)
[2021-11-19] MEDS: HumaLOG 300 UNITS/3 ML VIAL SC PRN (20:45)
[2021-11-20] MEDS: Sodium Chloride 0.9% 1,000 ML IV SCH ×2 (04:44→15:03)
[2021-11-20 07:07] LABS: INR-International Normal Ratio 2.4; Prothrombin Time 26.8 sec (12.0-14.7)
[2021-11-20] MEDS: Insulin NPH Human Isophane 100 UNIT/ML (10 ML VIAL) SQ SCH ×2 (09:05→16:34)
[2021-11-20] MEDS: Amiodarone 200 MG TAB PO SCH ×2 (09:06→21:14)
[2021-11-20] MEDS: Polyethylene Glycol 3350 17 GM Packet PO SCH (09:06)
[2021-11-20] MEDS: cefTRIAXone\\ROCEPHIN 1 GM in Sodium Chloride 0.9% 100 ML IVPB SCH (15:03)
[2021-11-20] MEDS: Warfarin Sodium 2.5 MG TAB PO SCH (16:34)
[2021-11-20] MEDS: Acetaminophen 500 MG TAB PO PRN (21:14)
[2021-11-21 07:24] LABS: Prothrombin Time 23.1 sec (12.0-14.7)
[2021-11-21 08:22] LABS: #Eosinphils 0.2 thou/uL (0.0-0.7); #Lymphocytes 0.8 thou/uL (1.20-3.40); #Monocytes 0.6 thou/uL (0.11-0.59); #Neutrophils 3.4 thou/uL (1.40-6.50); %Basophils 0.8 % (0.0-1.0); %Eosinophils 4.1 % (0.0-10.0); %Lymphocytes 15.2 % (21.0-51.0); %Monocytes 12.2 % (0.0-10.0); %Neutrophils 67.8 % (42.0-75.0); Hemoglobin 8.3 g/dL (12.0-16.0); Mean Corpuscular HGB CONC 32.5 g/dL (32.0-36.0); Mean Platelet Volume 8.7 fL (7.4-10.4); Platelet Count 110 thou/uL (130-400); RBC Distribution Width 16.3 % (11.5-14.5); Red Blood Cell (RBC) Count 2.51 mill/uL (4.20-5.40)
[2021-11-21] MEDS: Amiodarone 200 MG TAB PO SCH ×2 (08:27→20:21)
[2021-11-21] MEDS: Insulin NPH Human Isophane 100 UNIT/ML (10 ML VIAL) SQ SCH ×2 (08:28→16:37)
[2021-11-21] MEDS: Polyethylene Glycol 3350 17 GM Packet PO SCH (08:29)
[2021-11-21 08:37] LABS: ALT (SGPT) 12 U/L (8-55); AST (SGOT) 18 U/L (5-34); Albumin 3.5 g/dL (3.5-5.0); Alkaline Phosphatase 114 U/L (40-110); Anion Gap 12 mmol/L (10-20); BUN (Urea Nitrogen) 13 mg/dL (9.8-20.1); Bilirubin, Total 1.5 mg/dL (0.2-1.2); Calc. Creatinine Clearance 54 mL/min (70-130); Calcium 8.3 mg/dL (7.8-10.44); Carbon Dioxide 19 mmol/L (22-29); Chloride 107 mmol/L (98-107); Estimated GFR 51; Glucose 103 mg/dL (70-105); Magnesium 2.2 mg/dL (1.6-2.6); Potassium 4.4 mmol/L (3.5-5.1); Protein, Total 6.5 g/dL (6.0-8.3); Sodium 134 mmol/L (136-145)
[2021-11-21 10:46] LABS: RBC Morphology Normal
[2021-11-21 10:47] LABS: Platelet Morphology Comment Appears Decreased
[2021-11-21] MEDS: cefTRIAXone\\ROCEPHIN 1 GM in Sodium Chloride 0.9% 100 ML IVPB SCH (14:32)
[2021-11-21] MEDS: Epoetin (ESRD) 10,000 UNITS/ML VIAL IVP SCH (14:44)
[2021-11-21] MEDS: Sodium Chloride 0.9% 1,000 ML IV SCH (16:08)
[2021-11-21] MEDS: Warfarin Sodium 2.5 MG TAB PO SCH (16:37)
[2021-11-22 06:48] LABS: #Eosinphils 0.2 thou/uL (0.0-0.7); #Lymphocytes 0.7 thou/uL (1.20-3.40); #Monocytes 0.6 thou/uL (0.11-0.59); #Neutrophils 3.6 thou/uL (1.40-6.50); %Basophils 0.2 % (0.0-1.0); %Lymphocytes 14.3 % (21.0-51.0); %Monocytes 12.1 % (0.0-10.0); %Neutrophils 70.4 % (42.0-75.0); Hemoglobin 8.4 g/dL (12.0-16.0); Mean Corpuscular HGB CONC 32.7 g/dL (32.0-36.0); Mean Corpuscular Hemoglobin 33.2 pg (27.0-31.0); Mean Platelet Volume 8.5 fL (7.4-10.4); Platelet Count 112 thou/uL (130-400); RBC Distribution Width 16.5 % (11.5-14.5); Red Blood Cell (RBC) Count 2.52 mill/uL (4.20-5.40); White Blood Cell (WBC) Count 5.1 thou/uL (4.8-10.8)
[2021-11-22 06:51] LABS: INR-International Normal Ratio 2.3; Prothrombin Time 25.3 sec (12.0-14.7)
[2021-11-22 07:00] LABS: Anion Gap 10 mmol/L (10-20); BUN (Urea Nitrogen) 12 mg/dL (9.8-20.1); Calc. Creatinine Clearance 60 mL/min (70-130); Calcium 8.5 mg/dL (7.8-10.44); Carbon Dioxide 21 mmol/L (22-29); Chloride 109 mmol/L (98-107); Estimated GFR 58; Glucose 96 mg/dL (70-105); Potassium 4.2 mmol/L (3.5-5.1); Sodium 136 mmol/L (136-145)
[2021-11-22] MEDS: Insulin NPH Human Isophane 100 UNIT/ML (10 ML VIAL) SQ SCH ×2 (07:54→18:23)
[2021-11-22] MEDS: Amiodarone 200 MG TAB PO SCH ×2 (07:54→20:48)
[2021-11-22] MEDS: Sodium Chloride 0.9% 1,000 ML IV SCH (08:00)
[2021-11-22] MEDS: Polyethylene Glycol 3350 17 GM Packet PO SCH (08:01)
[2021-11-22] MEDS: cefTRIAXone\\ROCEPHIN 1 GM in Sodium Chloride 0.9% 100 ML IVPB SCH (13:50)
[2021-11-22] MEDS: Acetaminophen 500 MG TAB PO PRN ×2 (17:38→20:49)
[2021-11-22] MEDS: Warfarin Sodium 2.5 MG TAB PO SCH ×2 (18:32→20:48)
[2021-11-22] MEDS: HumaLOG 300 UNITS/3 ML VIAL SC PRN (20:50)
[2021-11-22 22:13] LABS: Hemoglobin 8.2 g/dL (12.0-16.0)
[2021-11-23] MEDS: Acetaminophen 500 MG TAB PO PRN ×2 (06:07→20:49)
[2021-11-23 06:38] LABS: Hemoglobin 8.4 g/dL (12.0-16.0); Platelet Count 122 thou/uL (130-400)
[2021-11-23 07:43] LABS: #Eosinphils 0.1 thou/uL (0.0-0.7); #Lymphocytes 0.7 thou/uL (1.20-3.40); #Monocytes 0.8 thou/uL (0.11-0.59); #Neutrophils 4.2 thou/uL (1.40-6.50); %Basophils 0.8 % (0.0-1.0); %Eosinophils 2.3 % (0.0-10.0); %Lymphocytes 11.2 % (21.0-51.0); %Monocytes 13.5 % (0.0-10.0); %Neutrophils 72.2 % (42.0-75.0); Hemoglobin 8.5 g/dL (12.0-16.0); Mean Corpuscular HGB CONC 32.7 g/dL (32.0-36.0); Mean Corpuscular Hemoglobin 33.7 pg (27.0-31.0); Mean Platelet Volume 8.7 fL (7.4-10.4); Platelet Count 117 thou/uL (130-400); RBC Distribution Width 16.9 % (11.5-14.5); Red Blood Cell (RBC) Count 2.53 mill/uL (4.20-5.40); White Blood Cell (WBC) Count 5.8 thou/uL (4.8-10.8)
[2021-11-23 07:52] LABS: ALT (SGPT) 10 U/L (8-55); AST (SGOT) 15 U/L (5-34); Albumin 3.5 g/dL (3.5-5.0); Alkaline Phosphatase 113 U/L (40-110); Anion Gap 12 mmol/L (10-20); BUN (Urea Nitrogen) 13 mg/dL (9.8-20.1); Bilirubin, Total 1.2 mg/dL (0.2-1.2); Calc. Creatinine Clearance 51 mL/min (70-130); Calcium 8.3 mg/dL (7.8-10.44); Carbon Dioxide 17 mmol/L (22-29); Chloride 110 mmol/L (98-107); Estimated GFR 48; Globulin 2.9 g/dL (2.4-3.5); Glucose 103 mg/dL (70-105); Potassium 4.3 mmol/L (3.5-5.1); Protein, Total 6.4 g/dL (6.0-8.3); Sodium 135 mmol/L (136-145)
[2021-11-23 07:55] LABS: INR-International Normal Ratio 3.1; Prothrombin Time 32.8 sec (12.0-14.7)
[2021-11-23] MEDS: Saccharomyces boulardii 250 MG CAP PO SCH (08:17)
[2021-11-23] MEDS: Insulin NPH Human Isophane 100 UNIT/ML (10 ML VIAL) SQ SCH ×2 (08:17→17:00)
[2021-11-23] MEDS: Amiodarone 200 MG TAB PO SCH ×2 (08:17→20:48)
[2021-11-23] MEDS: Sodium Chloride 0.9% 1,000 ML IV SCH ×2 (12:21→20:43)
[2021-11-23] MEDS: Warfarin Sodium 2.5 MG TAB PO SCH (17:43)
[2021-11-24 06:36] LABS: #Basophils 0.1 thou/uL (0.0-0.2); #Eosinphils 0.2 thou/uL (0.0-0.7); #Lymphocytes 0.6 thou/uL (1.20-3.40); #Monocytes 0.6 thou/uL (0.11-0.59); #Neutrophils 3.6 thou/uL (1.40-6.50); %Basophils 1.4 % (0.0-1.0); %Eosinophils 3.3 % (0.0-10.0); %Lymphocytes 12.2 % (21.0-51.0); %Monocytes 12.6 % (0.0-10.0); %Neutrophils 70.4 % (42.0-75.0); Hemoglobin 8.8 g/dL (12.0-16.0); Mean Corpuscular HGB CONC 32.4 g/dL (32.0-36.0); Mean Corpuscular Hemoglobin 33.8 pg (27.0-31.0); Mean Platelet Volume 8.6 fL (7.4-10.4); Platelet Count 126 thou/uL (130-400); RBC Distribution Width 16.7 % (11.5-14.5); Red Blood Cell (RBC) Count 2.61 mill/uL (4.20-5.40)
[2021-11-24 06:41] LABS: INR-International Normal Ratio 3.6; Prothrombin Time 36.8 sec (12.0-14.7)
[2021-11-24 07:52] LABS: ALT (SGPT) 8 U/L (8-55); AST (SGOT) 18 U/L (5-34); Albumin 3.7 g/dL (3.5-5.0); Alkaline Phosphatase 106 U/L (40-110); Anion Gap 12 mmol/L (10-20); BUN (Urea Nitrogen) 13 mg/dL (9.8-20.1); Bilirubin, Total 1.4 mg/dL (0.2-1.2); Calc. Creatinine Clearance 52 mL/min (70-130); Calcium 8.4 mg/dL (7.8-10.44); Carbon Dioxide 18 mmol/L (22-29); Chloride 108 mmol/L (98-107); Estimated GFR 48; Globulin 3.2 g/dL (2.4-3.5); Glucose 98 mg/dL (70-105); Potassium 4.2 mmol/L (3.5-5.1); Protein, Total 6.9 g/dL (6.0-8.3); Sodium 134 mmol/L (136-145)
[2021-11-24] MEDS: Amiodarone 200 MG TAB PO SCH (08:22)
[2021-11-24] MEDS: Saccharomyces boulardii 250 MG CAP PO SCH (08:22)
[2021-11-24] MEDS: Insulin NPH Human Isophane 100 UNIT/ML (10 ML VIAL) SQ SCH (08:23)
[2021-11-24 08:30] VITALS: BP 138/52; TEMP 97.3
== END 2021-11-24 13:23 | disposition home or self-care (01) | DRG 556 ==
LOC: T4-B 18:08
PROVIDERS: ADMIT Internal Medicine; ATTEND Internal Medicine
DX: M79.81 Nontraumatic hematoma of soft tissue (principal); E87.20 Acidosis, unspecified; I50.22 Chronic systolic (congestive) heart failure; N17.9 Acute kidney failure, unspecified; I48.19 Other persistent atrial fibrillation; N39.0 Urinary tract infection, site not specified; E11.22 Type 2 diabetes mellitus with diabetic chronic kidney disease; I27.20 Pulmonary hypertension, unspecified; I35.0 Nonrheumatic aortic (valve) stenosis; N18.30 Chronic kidney disease, stage 3 unspecified; D63.1 Anemia in chronic kidney disease; Z95.2 Presence of prosthetic heart valve; Z79.84 Long term (current) use of oral hypoglycemic drugs; Z79.4 Long term (current) use of insulin; Z70.2 Counseling related to sexual behavior and orientation of third party; Z79.899 Other long term (current) drug therapy; T45.515A Adverse effect of anticoagulants, initial encounter
CPT/HCPCS: 36415; 36416; 71045; 74176; 74177; 80048; 80053; 81001; 83540; 83550; 83735; 83930; 83935; 84100; 84300; 85014; 85018; 85025; 85049; 85610; 85730; 86850; 86900; 86901; 87811; 93005; 93010; J0696; J1815; J3490; J7050; Q4081; Q9967; U0003; U0005